=== PATIENT | male | born 1945 | race Caucasian/White ===

== ENCOUNTER 2017-08-13 01:42 | Observation (INO) | payer OTHER ==
[~2017-08-13] VITALS: Ht 162.6 cm; Wt 60.2 kg
[~2017-08-13 01:42] MED LIST: AMLODIPINE BESYL5 MG PO; CLARITIN10 M3 PO; LEVOTHYROXINE100 MCG PO; PREDNISONE10 MG PO
[2017-08-13 02:49] LABS: BASOPHIL (%) 0.6 % (0-1); BASOPHIL COUNT 0.1 K/uL (0-0.1); EOSINOPHIL (%) 2.7 % (0-5); EOSINOPHIL COUNT 0.2 K/uL (0-0.3); HEMATOCRIT 34.4 % (38.0-50.0); HEMOGLOBIN 11.4 G/DL (12.5-16.6); IMMATURE GRANULOCYTE (%) 0.1 % (0.0-0.7); LYMPHOCYTE (%) 24.2 % (15-42); LYMPHOCYTE COUNT 1.9 K/uL (1.0-2.8); MCH 28.9 PG (29.0-34.0); MCHC 33.1 G/DL (30.0-36.0); MCV 87.1 FL (86-99); MONOCYTE (%) 10.3 % (3-12); MONOCYTE COUNT 0.8 K/uL (0-0.8); NEUTROPHIL (%) 62.1 % (45-76); NEUTROPHIL COUNT 4.8 K/uL (1.8-6.4); PLATELET COUNT 226 K/uL (156-360); RBC DIS.WIDTH-SD 41.2 % (39-53); RED BLOOD COUNT 3.95 M/uL (4.00-5.50); WHITE BLOOD COUNT 7.8 K/uL (4.1-10.2)
[2017-08-13 02:59] LABS: ALBUMIN 3.9 g/dL (3.2-4.8); CHLORIDE 105 mEq/L (99-109); POTASSIUM 4.2 mEq/L (3.7-5.4); SODIUM 140 mEq/L (136-147)
[2017-08-13 03:01] LABS: GLUCOSE 92 mg/dL (70-99); TOTAL PROTEIN 7.1 g/dL (6.4-8.3)
[2017-08-13 03:03] LABS: TOTAL BILIRUBIN 0.7 mg/dL (0.0-1.0)
[2017-08-13 03:05] LABS: ALKALINE PHOSPHATASE 62 IU/L (3-129); CREATININE 1.1 mg/dL (0.6-1.3); GFR ESTIMATE (CALCULATED) > 59 mL/min/ (58.99-99999)
[2017-08-13 03:06] LABS: UREA NITROGEN (BUN) 16 mg/dL (9-23)
[2017-08-13 03:07] LABS: AST (GOT) 21 IU/L (2-34)
[2017-08-13 03:08] LABS: ALT (GPT) 16 IU/L (3-49)
[2017-08-13 06:01] VITALS: BP 159/76
[2017-08-13 11:53] VITALS: BP 116/61
[2017-08-13] MEDS ORDERED: MEVACOR20 MG PO (12:53)
[2017-08-13] MEDS ORDERED: TYLENOL EXTRA500 MG PO (12:54)
[2017-08-13 15:40] VITALS: BP 124/66
[2017-08-13 19:53] VITALS: BP 141/74
[2017-08-13 23:40] VITALS: BP 92/60
[2017-08-14 04:24] VITALS: BP 121/69
[2017-08-14 08:00] VITALS: BP 122/70
[2017-08-14] MEDS ORDERED: PREDNISONE20 MG PO (10:30)
== END 2017-08-14 11:24 | disposition home or self-care (01) ==
LOC: EME 01:42 → 4SOUTH 04:18 → EDOF 04:18 → ENRESERV 04:21 → 4SOUTH 05:58 → ENPENDDIS 08-14 10:34 → 4SOUTH 08-14 11:24
PROVIDERS: Emergency Medicine; Hospitalist
DX: T78.3XXA Angioneurotic edema, initial encounter (principal); I10 Essential (primary) hypertension; E78.5 Hyperlipidemia, unspecified; E03.9 Hypothyroidism, unspecified; Z87.891 Personal history of nicotine dependence; Z88.8 Allergy status to other drugs, medicaments and biological substances
CPT/HCPCS: 80053; 82948; 85025; 99281; 99284; G0378; J1200; J1644; J1815; J2920; J2930; S0028